=== PATIENT | female | born 1995 | race Asian ===

== ENCOUNTER 2017-03-20 17:57 | Emergency (ER) | payer OTHER ==
--- NOTE | 2017-03-20 18:03 | EDPHY ---
H & P Time Seen by Provider: 03/20/17 17:57 HPI/ROS: CHIEF COMPLAINT: Short of breath after getting sprayed with bear spray in the face HISTORY OF PRESENT ILLNESS: Patient works at the desk at [employer] and opened which she thought was a water bottle behind a desk and it turned out to be bear spray got her in the face. Patient initially was short of breath and was decontaminated by Fire Department on scene. Now she says she feels fine except for some burning on both forearms. She has had a little bit of a cold for the last week and has a little bit of a nonproductive cough which is unchanged after her exposure. No trouble breathing or swallowing. REVIEW OF SYSTEMS: Eye: no eye pain, normal vision, no visual symptoms or foreign body in eye symptoms. ENT: no sore throat Cardiac: no chest pain or syncope Pulmonary: HPI Abdomen: no vomiting, diarrhea, abdominal pain Musculoskeletal: no back pain, some burning pain in both forearms Skin: no rash Neuro: no headache Constitutional: no fever : no urinary symptoms A comprehensive 10 point review of systems is otherwise negative aside from elements mentioned in the history of present illness. PAST MEDICAL HISTORY: Left ACL injury Social history: Work history as above, arrives by EMS, nonsmoker. General Appearance: Alert and conversant, cooperative. Eyes: No scleral icterus. ENT, Mouth: Normal mucous membranes. No angioedema. Respiratory: Normal respiratory effort, breath sounds equal, lungs are clear to auscultation. No wheezing. Cardiovascular: Regular rate and rhythm. Gastrointestinal: Abdomen is soft and non tender. Neurological: Alert and oriented x3. Normally conversant. Face symmetric, normal movement and sensation in all extremities. Skin: Warm and dry, no rashes. Both upper arm and forearm specifically examined. Musculoskeletal: No peripheral edema and no joint swelling. Psychiatric: Not agitated. Emergency Department course/MDM: Poison control consulted at 6:48, case # [id number]. Oxygen saturation normal. No respiratory symptoms over baseline. Symptomatic care, soap and water for skin exposure. Constitutional: Initial Vital Signs Temperature (C) 36.5 C 03/20/17 18:08 Heart Rate 79 03/20/17 18:08 Respiratory Rate 16 03/20/17 18:08 Blood Pressure 137/91 H 03/20/17 18:08 O2 Sat (%) 98 03/20/17 18:08 O2 Delivery Mode Room Air Allergies/Adverse Reactions: No Known Allergies Allergy (Unverified 03/20/17 18:13) Home Medications: Medication Instructions Recorded NK [No Known Home Meds] 03/20/17 Departure - Departure Disposition: Home, Routine, Self-Care Clinical Impression: bear spray exposure Condition: Good Instructions: Additional Information Additional Instructions: Okay to return to work tomorrow. Come back immediately if you develop trouble breathing or swallowing or wheezing. Referrals: Work Comp Ref/Restrictions [Outside] - As per Instructions
[2017-03-20 18:13] VITALS: RESP 16; TEMP 97.7; O2SAT 98
[2017-03-20 19:10] VITALS: BP 125/81; PULSE 84
== END 2017-03-20 19:09 | disposition home or self-care (01) ==
DX: Z77.098 Contact with and (suspected) exposure to other hazardous, chiefly nonmedicinal, chemicals (principal)